=== PATIENT | male | born 1990 | race American Indian/Alaskan Native ===

== ENCOUNTER 2021-10-28 01:03 | Emergency (ER) | payer SELFPAY ==
[2021-10-28] MEDS ORDERED: ACETAMINOPHEN 325 MG TAB PO ONE (05:27)
[2021-10-28] MEDS ORDERED: IBUPROFEN 600 MG TAB PO ONE (05:27)
--- NOTE | 2021-10-28 06:04 | Emergency Department Report ---
ED General Adult HPI - General Chief complaint: Pain General Stated complaint: WEAKNESS Source: patient, EMS Mode of arrival: Ambulatory Limitations: No Limitations - History of Present Illness Initial comments: Patient is a 31-year-old -[place] male with no past medical history who presents to the ED with complaint of acute onset rectal pain after wiping his anal area after bowel movement 2 days ago. Patient states that the pain has been constant and persistent. Patient denies abdominal pain, fever, chills, nausea and vomiting, traumatic injury, testicular pain, dysuria, urinary frequency and urgency, diarrhea, constipation, back pain or hematuria. MD Complaint: Rectal pain -: Sudden, days(s) (2) Location: buttocks Radiation: non-radiation Severity scale (0 -10): 8 Quality: aching, sharp Consistency: constant Improves with: none Worsens with: movement Associated Symptoms: denies other symptoms. denies: confusion, chest pain, cough, diaphoresis, fever/chills, headaches, loss of appetite, malaise, nausea/vomiting, rash, seizure, syncope, weakness Treatments Prior to Arrival: none - Related Data Previous Rx's Medication Instructions Recorded Last Taken Type Dibucaine 1 applic RC QID PRN #1 tube 10/28/21 Unknown Rx Docusate Sodium [Colace CAP] 100 mg PO BID #60 capsule 10/28/21 Unknown Rx Hydrocortisone [Anusol-Hc 2.5% TOP 30 gm RC BID #1 tube 10/28/21 Unknown Rx CREAM] Naproxen 500 mg PO Q12H PRN #24 tab 10/28/21 Unknown Rx Allergies Allergy/AdvReac Type Severity Reaction Status Date / Time No Known Allergies Allergy Unverified 10/28/21 02:25 ED Review of Systems ROS: Stated complaint: WEAKNESS Other details as noted in HPI Constitutional: denies: chills, fever Eyes: denies: eye pain, eye discharge, vision change ENT: denies: ear pain, throat pain Respiratory: denies: cough, shortness of breath, wheezing Cardiovascular: denies: chest pain, palpitations Endocrine: no symptoms reported Gastrointestinal: other (Rectal pain). denies: abdominal pain, nausea, vomiting, diarrhea Genitourinary: denies: urgency, dysuria Musculoskeletal: denies: back pain, joint swelling, arthralgia Skin: denies: rash, lesions Neurological: denies: headache, weakness, paresthesias Psychiatric: denies: anxiety, depression Hematological/Lymphatic: denies: easy bleeding, easy bruising ED Past Medical Hx - Past Medical History Previous Medical History?: No - Surgical History Past Surgical History?: No - Social History Smoking Status: Current Every Day Smoker Substance Use Type: Marijuana - Medications Home Medications: Home Medications Medication Instructions Recorded Confirmed Last Taken Type Dibucaine 1 applic RC QID PRN #1 tube 10/28/21 Unknown Rx Docusate Sodium [Colace CAP] 100 mg PO BID #60 capsule 10/28/21 Unknown Rx Hydrocortisone [Anusol-Hc 2.5% TOP 30 gm RC BID #1 tube 10/28/21 Unknown Rx CREAM] Naproxen 500 mg PO Q12H PRN #24 tab 10/28/21 Unknown Rx ED Physical Exam - General Limitations: No Limitations General appearance: alert, in no apparent distress, anxious - Head Head exam: Present: atraumatic, normocephalic, normal inspection - Eye Eye exam: Present: normal appearance, PERRL, EOMI Pupils: Present: normal accommodation - ENT ENT exam: Present: normal exam, normal orophraynx, mucous membranes moist, TM's normal bilaterally, normal external ear exam - Neck Neck exam: Present: normal inspection, full ROM. Absent: tenderness - Respiratory Respiratory exam: Present: normal lung sounds bilaterally. Absent: respiratory distress, wheezes, rales, rhonchi, chest wall tenderness, accessory muscle use, decreased breath sounds - Cardiovascular Cardiovascular Exam: Present: regular rate, normal rhythm, normal heart sounds. Absent: systolic murmur, diastolic murmur, rubs, gallop - GI/Abdominal GI/Abdominal exam: Present: soft, normal bowel sounds. Absent: tenderness, guarding, rebound, rigid, hyperactive bowel sounds, hypoactive bowel sounds, organomegaly, mass, bruit - Rectal Rectal exam: Present: hemorrhoids (External tender hemorrhoids), tenderness. Absent: bloody stool - Extremities Exam Extremities exam: Present: normal inspection, full ROM, normal capillary refill. Absent: tenderness - Back Exam Back exam: Present: normal inspection, full ROM. Absent: tenderness, CVA tenderness (R), CVA tenderness (L), muscle spasm, paraspinal tenderness, vertebral tenderness, rash noted - Neurological Exam Neurological exam: Present: alert, oriented X3, CN II-XII intact, normal gait, reflexes normal - Psychiatric Psychiatric exam: Present: normal affect, normal mood - Skin Skin exam: Present: warm, dry, intact, normal color. Absent: rash ED Course Vital Signs 10/28/21 01:04 Temperature 99.3 F Pulse Rate 97 H Respiratory 20 Rate Blood Pressure 124/86 O2 Sat by Pulse 97 Oximetry ED Medical Decision Making - Medical Decision Making This is a 31-year-old -[place] male with no past medical history who presents to the ED with complaint of acute onset rectal pain after wiping his anal area after bowel movement 2 days ago. Patient states that the pain has been constant and persistent. In the ED, patient is alert and oriented x3 and is not in any distress. Patient was treated for pain in the ED. Patient the history and physical exam findings, the patient was discharged home on medications for pain for external hemorrhoids and was advised to follow-up with his primary care physician in 7 to 10 days for reevaluation. Patient was also advised of the importance of increasing his water intake and high-fiber diet to improve on his chronic recurrent hemorrhoids. Patient was advised return to the ED immediately if symptoms get worse. - Differential Diagnosis External hemorrhoids; anal fissures; anal tear; rectal abscess Critical care attestation.: If time is entered above; I have spent that time in minutes in the direct care of this critically ill patient, excluding procedure time. ED Disposition Clinical Impression: External hemorrhoids, Anal or rectal pain Disposition: HOME / SELF CARE / HOMELESS Is pt being admited?: No Does the pt Need Aspirin: No Condition: Stable Instructions: Hemorrhoids, [id number], Nonsurgical Procedures for Hemorrhoids, Care After Additional Instructions: Take medication with food, drink plenty of fluids, follow-up with your primary care physician in 7 to 10 days for reevaluation. Increase your fiber intake and water intake as well to improve on your symptoms. Apply the medication to the affected area as advised. Return to the ED immediately if symptoms get worse. Prescriptions: Hydrocortisone [Anusol-Hc 2.5% TOP CREAM] 30 gm RC BID #1 tube Docusate Sodium [Colace CAP] 100 mg PO BID #60 capsule Dibucaine 1 applic RC QID PRN #1 tube PRN Reason: rectal pain Naproxen 500 mg PO Q12H PRN #24 tab PRN Reason: Pain , Severe (7-10) Referrals: [facility] [Provider Group] - 3-5 Days Forms: Work/School Release Form(ED) Time of Disposition: 06:05 Print Language: [place] CITIZ[place]
[2021-10-28 06:54] VITALS: BP 132/85
== END 2021-10-28 07:12 | disposition home or self-care (01) ==
LOC: ED 01:03
DX: K64.4 Residual hemorrhoidal skin tags (principal); K62.89 Other specified diseases of anus and rectum; F17.200 Nicotine dependence, unspecified, uncomplicated; F12.90 Cannabis use, unspecified, uncomplicated
CPT/HCPCS: 99282; 99283